=== PATIENT | male | born 1975 | race African-American/Black ===

== ENCOUNTER 2018-02-08 10:25 | Emergency (ER) | payer MEDICAID, OTHER ==
[~2018-02-08] VITALS: Ht 185.4 cm; Wt 94.8 kg
[~2018-02-08 10:25] MED LIST: IBUPROFEN600 MG ORAL; NORCO 5-325 TA1 EACH ORAL; PERCOCET 5-3251 EACH ORAL; VALIUM5 MG ORAL
[2018-02-08] MEDS ORDERED: TRAMADOL HCL100 M2 ORAL (10:36)
[2018-02-08 10:39] VITALS: BP 137/80
[2018-02-08] MEDS ORDERED: TRAMADOL HCL50 MG ORAL (11:06)
[2018-02-08] MEDS ORDERED: IBUPROFEN600 MG ORAL (11:06)
[2018-02-08] MEDS ORDERED: traMADol 50mg tab ORAL ONE (11:15)
[2018-02-08 11:20] VITALS: BP 132/85
--- NOTE | 2018-02-12 08:55 | Emergency Room Report ---
History of Present Illness General Chief Complaint: Back Pain-No Injury Source: Patient Present Illness HPI Patient is a 42-year-old male who presented after increased low back pain. Patient gradual onset of symptoms. Patient reports having increased pain to his low back recent injury. The patient states pain is worse with movement. Primarily worse with standing. Pain was not relieved by oral medications. Patient not been vomiting or having any diarrhea. Allergies: Coded Allergies: No Known Allergies (Unverified , 02/08/18) Patient History Past Medical History: see triage record Reviewed Nursing Documentation: PMH: Agreed; PSxH: Agreed Nursing Documentation-PM Past Medical History: No History, Except For Hx Hypertension: Yes Hx Asthma: Yes Review of Systems All Other Systems: negative except mentioned in HPI Physical Exam Vital Signs Date Time Temp Pulse Resp B/P (MAP) Pulse Ox O2 Delivery O2 Flow Rate FiO2 02/08/18 10:30 97.3 79 14 137/80 97 Room Air General Appearance: well appearing, no apparent distress, alert, GCS 15 Head: normocephalic, atraumatic ENT: hearing grossly normal, normal voice Neck: full range of motion, supple Respiratory: no respiratory distress, speaking full sentences Gastrointestinal: normal inspection, normal bowel sounds, non tender, soft Musculoskeletal: gait/station normal, decreased range of mation Neurologic: normal inspection, alert, oriented x3, responsive, 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 Differential diagnosis included but was not limited to herniated disc, cauda equina syndrome, abdominal aortic aneurysm, perforated ulcer, spinal epidural abscess, spinal stenosis, lumbar fracture, metastatic lesion, pyelonephritis. Patient has a benign exam and does not appear to require any further imaging or laboratory testing at this time the patient appears to have chronic back pain. Patient was given prescription for pain medications. The patient is advised follow-up with primary care physician for further evaluation. The patient is advised to have that he might benefit from physical therapy and/or MRI. The patient is advised to return if he began having worsening pain, fever, increased weakness or other concerns Last Vital Signs Date Time Temp Pulse Resp B/P (MAP) Pulse Ox O2 Delivery O2 Flow Rate FiO2 02/08/18 11:20 97.0 75 24 132/85 99 Room Air Status: improved Disposition: HOME, SELF-CARE Condition: Stable Scripts Ibuprofen* (MOTRIN*) 600 Mg Tablet 600 MG ORAL Q8H PRN for For Pain, #30 TAB 0 Refills Prov: Kelby June MD 02/08/18 Tramadol Hcl* (ULTRAM*) 50 Mg Tablet 50 MG ORAL Q6H PRN for For Pain, #20 TAB 0 Refills Prov: Kelby June MD 02/08/18 Referrals: PEDRITO MARIN,REFERRING (PCP) Patient Instructions: Back Pain, Adult Kelby June MD Feb 12, 2018 08:55
== END 2018-02-08 11:21 | disposition home or self-care (01) ==
LOC: EMR 11:05
DX: M54.5 Low back pain (principal); J45.909 Unspecified asthma, uncomplicated; I10 Essential (primary) hypertension
CPT/HCPCS: 99283

== ENCOUNTER 2020-01-31 07:53 | Emergency (ER) | payer MEDICAID ==
[~2020-01-31] VITALS: Ht 185.4 cm; Wt 95.3 kg
[~2020-01-31 07:53] MED LIST changes: +TRAMADOL HCL100 M2 ORAL; +TRAMADOL HCL50 MG ORAL
--- NOTE | 2020-01-31 08:04 | NUR ---
ED Nurse Note: Pt walked in with a stead gait, co of lower back pain. States that he had pain when he was lifting a load of laundry. States that it feels similar to a previous injury that he has had in the past that was recomended for surgery. He is also asking for a work note. Vital signs are stable as documented. His breathing is unlabored andis not showing signs of distress.
[2020-01-31 08:10] VITALS: BP 155/100
[2020-01-31] MEDS ORDERED: Ketorolac 30mg Inj IM ONE (08:30)
[2020-01-31] MEDS ORDERED: Methocarbamol 750mg tab ORAL ONE (08:30)
--- NOTE | 2020-01-31 08:47 | Emergency Room Report ---
History of Present Illness General Chief Complaint: Lower Back Pain or Injury Source: Patient, Medical Record Present Illness HPI 44-year-old male presents to ED for evaluation. Complaining of low back pain. Started yesterday after lifting some heavy boxes. States he already has back problems and has a slipped disc. Pain is dull, 8 out of 10, nonradiating. Denies bowel or bladder incontinence. Denies any leg or motor weakness. No other aggravating relieving factors. Denies any other associated symptoms Allergies: Coded Allergies: No Known Allergies (Unverified , 02/08/18) COVID-19 Screening Contact w/high risk pt: No Experienced COVID-19 symptoms?: No COVID-19 Testing performed [employer] SECRETARY: No Patient History Past Medical History: HTN, asthma Past Surgical History: none Pertinent Family History: none Social History: Denies: smoking, alcohol use, drug use Immunizations: UTD Reviewed Nursing Documentation: PMH: Agreed; PSxH: Agreed Nursing Documentation-PMH Past Medical History: No History, Except For Hx Hypertension: Yes Hx Asthma: Yes Review of Systems All Other Systems: negative except mentioned in HPI Physical Exam Vital Signs Date Time Temp Pulse Resp B/P (MAP) Pulse Ox O2 Delivery O2 Flow Rate FiO2 01/31/20 08:01 98.2 86 14 155/100 (118) 99 Room Air Sp02 EP Interpretation: reviewed, normal General Appearance: no apparent distress, alert, GCS 15, non-toxic Head: normocephalic, atraumatic Eyes: bilateral eye normal inspection, bilateral eye PERRL ENT: hearing grossly normal, normal pharynx, no angioedema, normal voice Neck: full range of motion, supple/symm/no masses Respiratory: chest non-tender, lungs clear, normal breath sounds, speaking full sentences Cardiovascular #1: regular rate, rhythm, no edema Cardiovascular #2: 2+ carotid (R), 2+ carotid (L), 2+ radial (R), 2+ radial (L), 2+ dorsalis pedis (R), 2+ dorsalis pedis (L) Gastrointestinal: normal bowel sounds, non tender, soft, non-distended, no guarding, no rebound Rectal: deferred Genitourinary: normal inspection, no CVA tenderness Musculoskeletal: normal range of motion, gait/station normal, tender - Paraspinal lumbar tenderness Neurologic: alert, motor strength/tone normal, oriented x3, sensory intact, responsive, speech normal Psychiatric: judgement/insight normal, memory normal, mood/affect normal, no suicidal/homicidal ideation Reflexes: 3+ bicep (R), 3+ bicep (L), 3+ tricep (R), 3+ tricep (L), 3+ knee (R), 3+ knee (L) Skin: no rash Lymphatic: no adenopathy Medical Decision Making Diagnostic Impression: Primary Impression: Back pain Qualified Codes: M54.5 - Low back pain; G89.29 - Other chronic pain ER Course Hospital Course 44-year-old male presents with back pain after lifting heavy box Differential diagnoses include: pyelonephritis, kidney stone, muscle strain, Lspine fracture Clinical course Patient placed on stretcher. After initial history exam reveals male in no acute distress. There is pain to the lower back. No midline tenderness. No sensory deficit. 5 out of 5 strength in lower legs. Given Toradol, Robaxin, Lidoderm here. on reassessment pain improved. I discussed findings with patient. Will likely benefit from physical therapy possibly surgery. Was told in the past he may likely need surgery. States he will follow-up with his PMD Diagnosis - back pain Stable and discharged to home with prescription for Motrin, Robaxin, Lidoderm. Followup with PMD. Return to ED if symptoms recur or worsen Last Vital Signs Date Time Temp Pulse Resp B/P (MAP) Pulse Ox O2 Delivery O2 Flow Rate FiO2 01/31/20 08:10 98.3 82 14 155/100 99 Room Air Status: improved Disposition: HOME, SELF-CARE Condition: Stable Scripts Lidocaine Patch* (Lidoderm Patch*) 1 Each Adh..patch 1 PATCH TOPIC DAILY, #7 PATCH 0 Refills Patch(es) may remain in place for up to 12 hours in any 24-hour period. Prov: Brown Chaves MD 01/31/20 Methocarbamol* (ROBAXIN-750*) 750 Mg Tablet 750 MG PO TID, #21 TAB 0 Refills Prov: Brown Chaves MD 01/31/20 Ibuprofen* (MOTRIN*) 600 Mg Tablet 600 MG ORAL Q8H PRN for FOR PAIN, #30 TAB 0 Refills Prov: Brown Chaves MD 01/31/20 Referrals: [facility]ERR (PCP) Brown Chaves MD Jan 31, 2020 08:47
[2020-01-31] MEDS ORDERED: ROBAXIN-750750 MG PO (09:00)
[2020-01-31] MEDS ORDERED: IBUPROFEN600 M1 ORAL (09:00)
[2020-01-31] MEDS ORDERED: LIDODERM700 M1 TOPIC (09:00)
--- NOTE | 2020-01-31 09:06 | NUR ---
ER DISCHARGE NOTE: Patient is cleared to be discharged per ERMD, pt is aox4, on room air, with stable vital signs. pt was given dc and prescription instructions, pt was able to verbalize understanding, pt id band removed without complications. pt is able to ambulate with steady gait. pt took all belongings.
[2020-01-31 09:52] VITALS: BP 145/90
== END 2020-01-31 09:10 | disposition home or self-care (01) ==
LOC: EMR 08:22
DX: M54.5 Low back pain (principal); I10 Essential (primary) hypertension; J45.909 Unspecified asthma, uncomplicated; X50.0XXA Overexertion from strenuous movement or load, initial encounter; Y93.89 Activity, other specified; Y92.9 Unspecified place or not applicable
CPT/HCPCS: 96372; J1885; Z7502; 99283